=== PATIENT | female | born 1950 | race Caucasian/White ===

== ENCOUNTER 2021-11-08 17:50 | Inpatient (IN) | payer MEDICARE ==
[2021-11-08] MEDS ORDERED: Vancomycin 1 GM/200 ML BAG ONE (18:25)
[2021-11-08] MEDS ORDERED: cefTRIAXone\\ROCEPHIN 2 GM VIAL ONE (18:25)
[2021-11-08 18:40] LABS: #Lymphocytes 0.7 thou/uL (1.20-3.40); #Monocytes 0.2 thou/uL (0.11-0.59); #Neutrophils 9.6 thou/uL (1.40-6.50); %Basophils 0.3 % (0.0-1.0); %Lymphocytes 6.2 % (21.0-51.0); %Monocytes 1.9 % (0.0-10.0); %Neutrophils 91.6 % (42.0-75.0); Hemoglobin 10.6 g/dL (12.0-16.0); Mean Corpuscular HGB CONC 33.1 g/dL (32.0-36.0); Mean Corpuscular Hemoglobin 31.8 pg (27.0-31.0); Mean Corpuscular Volume 96.1 fL (78.0-98.0); Mean Platelet Volume 7.7 fL (7.4-10.4); Platelet Count 280 thou/uL (130-400); RBC Distribution Width 12.4 % (11.5-14.5); Red Blood Cell (RBC) Count 3.35 mill/uL (4.20-5.40); White Blood Cell (WBC) Count 10.5 thou/uL (4.8-10.8)
[2021-11-08] MEDS ORDERED: Ondansetron PF 4 MG/2 ML Vial IVP PRN (18:50)
[2021-11-08] MEDS ORDERED: Acetaminophen 325 MG TAB PO PRN (18:50)
[2021-11-08] MEDS ORDERED: Bisacodyl 10 MG SUPP PR PRN (18:50)
[2021-11-08] MEDS ORDERED: Senokot S 8.6-50 MG TAB PO PRN (18:50)
[2021-11-08] MEDS ORDERED: Bisacodyl 5 MG TAB PO PRN (18:50)
[2021-11-08] MEDS ORDERED: Benzocaine 20% Spray 60 ML CAN PO PRN (19:00)
[2021-11-08 19:08] LABS: ALT (SGPT) 17 U/L (8-55); AST (SGOT) 44 U/L (5-34); Albumin 3.7 g/dL (3.4-4.8); Alkaline Phosphatase 68 U/L (40-110); Anion Gap 16 mmol/L (10-20); BUN (Urea Nitrogen) 16 mg/dL (9.8-20.1); Bilirubin, Total 0.3 mg/dL (0.2-1.2); Calc. Creatinine Clearance 0 mL/min (70-130); Calcium 9.6 mg/dL (7.8-10.44); Carbon Dioxide 22 mmol/L (23-31); Chloride 103 mmol/L (98-107); Estimated GFR 83; Globulin 4.5 g/dL (2.4-3.5); Glucose 132 mg/dL (80-115); Potassium 4.6 mmol/L (3.5-5.1); Protein, Total 8.2 g/dL (5.8-8.1); Sodium 136 mmol/L (136-145)
[2021-11-08 19:39] LABS: Hemoglobin A1c 4.8 % (4.0-6.0)
[2021-11-08 20:31] VITALS: BMI 25.4
[2021-11-08] MEDS: Sodium Chloride 0.9% 1,000 ML IV SCH (20:46)
[2021-11-08] MEDS: Morphine 4 MG/ML VIAL SLOW IVP PRN (20:58)
[2021-11-08] MEDS: FLUoxetine HCl 10 MG CAP PO SCH (20:58)
[2021-11-08] MEDS: sulfaSALAzine 500 MG TAB PO SCH (20:58)
[2021-11-08] MEDS: traZODone HCl 50 MG TAB PO SCH (20:59)
[2021-11-08] MEDS ORDERED: Vancomycin HCl 1 GM in Sodium Chloride 0.9% 250 ML 300 ML IVPB SCH (21:00)
[2021-11-08] MEDS ORDERED: Vancomycin HCl 500 MG in Sodium Chloride 0.9% 100 ML IVPB SCH (21:45)
[2021-11-08] MEDS: metroNIDAZOLE 500 MG in Premix Bag 1 BAG IVPB SCH (21:58)
[2021-11-08] MEDS: HYDROcodone/Acetaminophen 10/325 mg Tablet PO PRN (23:55)
[2021-11-08] MEDS: Cefepime 2 GM in Sodium Chloride 0.9% 100 ML IVPB SCH (23:56)
[2021-11-09] MEDS: Morphine 4 MG/ML VIAL SLOW IVP PRN ×3 (04:54→22:37)
[2021-11-09] MEDS: metroNIDAZOLE 500 MG in Premix Bag 1 BAG IVPB SCH ×3 (05:02→22:36)
[2021-11-09] MEDS: Cefepime 2 GM in Sodium Chloride 0.9% 100 ML IVPB SCH ×3 (06:05→22:31)
[2021-11-09 06:33] LABS: Reticulocyte Count 0.7 % (0.5-1.5)
[2021-11-09 06:38] LABS: #Basophils 0.1 thou/uL (0.0-0.2); #Lymphocytes 0.9 thou/uL (1.20-3.40); #Monocytes 0.6 thou/uL (0.11-0.59); #Neutrophils 8.2 thou/uL (1.40-6.50); %Basophils 0.7 % (0.0-1.0); %Eosinophils 0.4 % (0.0-10.0); %Lymphocytes 8.9 % (21.0-51.0); %Monocytes 6.5 % (0.0-10.0); %Neutrophils 83.5 % (42.0-75.0); Hemoglobin 10.1 g/dL (12.0-16.0); Mean Corpuscular HGB CONC 32.4 g/dL (32.0-36.0); Mean Corpuscular Hemoglobin 31.5 pg (27.0-31.0); Mean Platelet Volume 6.8 fL (7.4-10.4); Platelet Count 275 thou/uL (130-400); RBC Distribution Width 12.4 % (11.5-14.5); Red Blood Cell (RBC) Count 3.21 mill/uL (4.20-5.40); White Blood Cell (WBC) Count 9.8 thou/uL (4.8-10.8)
[2021-11-09 06:59] LABS: CK (CPK) 29 U/L (29-168); Iron Binding Capacity, Total 216 mcg/dL (265-497)
[2021-11-09 07:00] LABS: Iron 33 ug/dL (50-170)
[2021-11-09 07:01] LABS: ALT (SGPT) 12 U/L (8-55); AST (SGOT) 17 U/L (5-34); Albumin 3.7 g/dL (3.4-4.8); Alkaline Phosphatase 65 U/L (40-110); Anion Gap 14 mmol/L (10-20); BUN (Urea Nitrogen) 14 mg/dL (9.8-20.1); Bilirubin, Direct 0.1 mg/dL (0.1-0.3); Bilirubin, Total 0.2 mg/dL (0.2-1.2); CRP (Inflammatory) 20.54 mg/dL (= or < 0.5); Calc. Creatinine Clearance 70 mL/min (70-130); Calcium 9.1 mg/dL (7.8-10.44); Carbon Dioxide 24 mmol/L (23-31); Cardiac Risk 3.3 (Less than 4.5); Chloride 101 mmol/L (98-107); Cholesterol 193 mg/dl (< 200 Desired); Estimated GFR 83; Glucose 110 mg/dL (80-115); HDL Cholesterol 58 mg/dL (>60 Neg Risk); Iron 33 ug/dL (50-170); Iron Binding Capacity, Total 216 mcg/dL (265-497); LDL Cholesterol, Calculated 114 mg/dL; Magnesium 1.8 mg/dL (1.6-2.6); Potassium 3.5 mmol/L (3.5-5.1); Protein, Total 7.3 g/dL (5.8-8.1); Sodium 135 mmol/L (136-145); Triglycerides 105 mg/dL (Less than 150)
[2021-11-09 07:09] LABS: Ferritin 373.85 ng/mL (10-291)
[2021-11-09 07:24] LABS: HBCM Index 0.05 S/CO (0-0.79); HBSAg Index 0.27 S/CO (0-0.99); Hep A IgM AB Non-Reactive (NonReactive); Hep A IgM S/CO 0.16 S/CO (0-0.79); Hep B Surf Ag Non-Reactive S/CO (NonReactive); Hep C IgG Ab Non-Reactive (NonReactive); Hep C Index 0.05 S/CO (0-0.79); Hepatitis B Core IgM Abs Non-Reactive (NonReactive)
[2021-11-09] MEDS: sulfaSALAzine 500 MG TAB PO SCH ×3 (08:02→22:30)
[2021-11-09] MEDS: HYDROcodone/Acetaminophen 10/325 mg Tablet PO PRN ×3 (08:02→18:21)
[2021-11-09] MEDS ORDERED: Enoxaparin Sodium 40 MG/0.4 ML SYRINGE SC SCH (09:00)
[2021-11-09] MEDS: Sodium Chloride 0.9% 1,000 ML IV SCH (16:37)
[2021-11-09] MEDS: traZODone HCl 50 MG TAB PO SCH (22:30)
[2021-11-09] MEDS: FLUoxetine HCl 10 MG CAP PO SCH (22:31)
[2021-11-09] MEDS: VANCOMYCIN 1.25 GM/250 ML BAG 1.25 GM in Premix Bag 1 BAG IVPB SCH (23:00)
[2021-11-10] MEDS: Cefepime 2 GM in Sodium Chloride 0.9% 100 ML IVPB SCH (04:57)
[2021-11-10] MEDS: metroNIDAZOLE 500 MG in Premix Bag 1 BAG IVPB SCH ×3 (05:00→22:12)
[2021-11-10 06:26] LABS: ALT (SGPT) 10 U/L (8-55); AST (SGOT) 26 U/L (5-34); Albumin 3.3 g/dL (3.4-4.8); Alkaline Phosphatase 68 U/L (40-110); Anion Gap 20 mmol/L (10-20); BUN (Urea Nitrogen) 9 mg/dL (9.8-20.1); Bilirubin, Total 0.4 mg/dL (0.2-1.2); Calc. Creatinine Clearance 77 mL/min (70-130); Calcium 8.8 mg/dL (7.8-10.44); Carbon Dioxide 14 mmol/L (23-31); Chloride 99 mmol/L (98-107); Estimated GFR 93; Globulin 3.8 g/dL (2.4-3.5); Glucose 97 mg/dL (80-115); Magnesium 1.6 mg/dL (1.6-2.6); Phosphorus 2.6 mg/dL (2.3-4.7); Potassium 3.5 mmol/L (3.5-5.1); Protein, Total 7.1 g/dL (5.8-8.1); Sodium 129 mmol/L (136-145)
[2021-11-10 06:32] LABS: Hemoglobin 11.3 g/dL (12.0-16.0); Mean Corpuscular HGB CONC 32.2 g/dL (32.0-36.0); Mean Corpuscular Hemoglobin 32.3 pg (27.0-31.0); Mean Platelet Volume 6.8 fL (7.4-10.4); Platelet Count 243 thou/uL (130-400); RBC Distribution Width 12.3 % (11.5-14.5); Red Blood Cell (RBC) Count 3.51 mill/uL (4.20-5.40); White Blood Cell (WBC) Count 11.3 thou/uL (4.8-10.8)
[2021-11-10] MEDS: HYDROcodone/Acetaminophen 10/325 mg Tablet PO PRN ×4 (07:29→22:12)
[2021-11-10] MEDS: sulfaSALAzine 500 MG TAB PO SCH ×3 (07:30→22:12)
[2021-11-10] MEDS: Sodium Chloride 0.9% 1,000 ML IV SCH (07:35)
[2021-11-10] MEDS ORDERED: cefTRIAXone\\ROCEPHIN 1 GM in Sodium Chloride 0.9% 100 ML IVPB SCH (08:00)
[2021-11-10 09:46] LABS: Band 3 % (5-11); Lymphocytes 10 % (21-51); MDiff Complete? YES; Monocytes 2 % (0-10); Neutrophil 85 % (42-75); Platelet Morphology Comment Appears Adequate; Polychromasia SLIGHT = 2-3 cells (100X) (0-2/hpf)
[2021-11-10 13:31] LABS: Anion Gap 16 mmol/L (10-20); BUN (Urea Nitrogen) 9 mg/dL (9.8-20.1); Calc. Creatinine Clearance 71 mL/min (70-130); Calcium 9.2 mg/dL (7.8-10.44); Carbon Dioxide 21 mmol/L (23-31); Chloride 101 mmol/L (98-107); Estimated GFR 84; Glucose 168 mg/dL (80-115); Potassium 3.2 mmol/L (3.5-5.1); Sodium 135 mmol/L (136-145)
[2021-11-10] MEDS: Lactated Ringer's 1,000 ML IV SCH (13:32)
[2021-11-10 13:51] LABS: Actual Bicarbonate (HCO3v) 26 mEq/L (22-28); Base Excess 1.6 mEq/L (-2.0 to +3.0); Calcium, Ionized (venous) 1.12 mmol/L (1.16-1.32); Chloride (VBG) 100 mmol/L (98-106); Hemoglobin (Hb) 10.3 g/dL (11.7-16.1); Sodium 135.8 mmol/L (133-146); pH (venous) 7.43 (7.32-7.43)
[2021-11-10] MEDS: Morphine 4 MG/ML VIAL SLOW IVP PRN (14:52)
[2021-11-10] MEDS ORDERED: Potassium Chloride 20 MEQ TAB PO SCH (16:47)
[2021-11-10 18:24] LABS: Bacteria/HPF None Seen HPF (None Seen); Bilirubin Negative (Negative); Blood, Urine 1+ (Negative); Clarity Clear (Clear); Glucose, Urine (Dipstick) Normal (Negative); Ketone, Urine 20 mg/dL (Negative); Leukocyte 25 Leu/uL (Negative); Nitrite Negative (Negative); Protein, Urine (Dipstick) 10 mg/dL (Neg-Trace); Squamous Epithelial None Seen HPF (0-3); Urobilinogen Normal mg/dL (Less than 2); WBC/HPF 0-3 HPF (0-3); pH, Urine 6.5 (5.0-9.0)
[2021-11-10 18:26] LABS: Urine Culture Reflex Yes Yes
[2021-11-10 19:23] LABS: Vancomycin, Trough 8.1 ug/mL
[2021-11-10] MEDS ORDERED: VANCOMYCIN 1.25 GM/250 ML BAG 1.25 GM in Premix Bag 1 BAG IVPB SCH (21:00)
[2021-11-10] MEDS: FLUoxetine HCl 10 MG CAP PO SCH (22:12)
[2021-11-10] MEDS: traZODone HCl 50 MG TAB PO SCH (22:12)
[2021-11-11] MEDS: VANCOMYCIN 1.25 GM/250 ML BAG 1.25 GM in Premix Bag 1 BAG IVPB SCH (00:09)
[2021-11-11 06:01] LABS: #Eosinphils 0.2 thou/uL (0.0-0.7); #Lymphocytes 1.3 thou/uL (1.20-3.40); #Monocytes 0.9 thou/uL (0.11-0.59); %Basophils 0.3 % (0.0-1.0); %Eosinophils 1.1 % (0.0-10.0); %Lymphocytes 9.1 % (21.0-51.0); %Monocytes 6.3 % (0.0-10.0); %Neutrophils 83.2 % (42.0-75.0); Hemoglobin 10.5 g/dL (12.0-16.0); Mean Corpuscular HGB CONC 33.7 g/dL (32.0-36.0); Mean Corpuscular Hemoglobin 32.1 pg (27.0-31.0); Mean Corpuscular Volume 95.3 fL (78.0-98.0); Mean Platelet Volume 6.8 fL (7.4-10.4); Platelet Count 300 thou/uL (130-400); RBC Distribution Width 12.5 % (11.5-14.5); Red Blood Cell (RBC) Count 3.28 mill/uL (4.20-5.40); White Blood Cell (WBC) Count 14.4 thou/uL (4.8-10.8)
[2021-11-11] MEDS: HYDROcodone/Acetaminophen 10/325 mg Tablet PO PRN ×3 (06:17→21:05)
[2021-11-11 06:21] LABS: ALT (SGPT) 10 U/L (8-55); AST (SGOT) 16 U/L (5-34); Albumin 3.6 g/dL (3.4-4.8); Alkaline Phosphatase 73 U/L (40-110); Anion Gap 14 mmol/L (10-20); BUN (Urea Nitrogen) 6 mg/dL (9.8-20.1); Bilirubin, Total 0.3 mg/dL (0.2-1.2); Calc. Creatinine Clearance 82 mL/min (70-130); Calcium 8.8 mg/dL (7.8-10.44); Carbon Dioxide 25 mmol/L (23-31); Chloride 97 mmol/L (98-107); Estimated GFR 94; Globulin 3.6 g/dL (2.4-3.5); Glucose 107 mg/dL (80-115); Magnesium 2.2 mg/dL (1.6-2.6); Protein, Total 7.2 g/dL (5.8-8.1); Sodium 133 mmol/L (136-145)
[2021-11-11] MEDS: metroNIDAZOLE 500 MG in Premix Bag 1 BAG IVPB SCH ×3 (06:22→22:00)
[2021-11-11 06:25] LABS: Potassium 2.9 mmol/L (3.5-5.1)
[2021-11-11] MEDS ORDERED: Electrolyte Replacement Protocol 1 EACH FS SCH (06:30)
[2021-11-11] MEDS ORDERED: Potassium Chloride 20 MEQ in Premix Bag 1 BAG IVPB SCH (07:30)
[2021-11-11] MEDS ORDERED: Cefepime 2 GM in Sodium Chloride 0.9% 100 ML IVPB SCH (07:45)
[2021-11-11] MEDS: Potassium Chloride 20 MEQ TAB PO SCH ×2 (08:17→11:19)
[2021-11-11] MEDS: sulfaSALAzine 500 MG TAB PO SCH ×3 (08:17→20:58)
[2021-11-11] MEDS: Losartan 25 MG TAB PO SCH (08:18)
[2021-11-11] MEDS: Morphine 4 MG/ML VIAL SLOW IVP PRN (10:40)
[2021-11-11] MEDS: Vancomycin HCl 750 MG in Sodium Chloride 0.9% 250 ML 250 ML IVPB SCH ×2 (11:19→20:57)
[2021-11-11] MEDS: Lactated Ringer's 1,000 ML IV SCH (11:19)
[2021-11-11] MEDS: Cefepime 2 GM in Sodium Chloride 0.9% 100 ML IVPB SCH ×2 (14:24→21:18)
[2021-11-11 14:30] LABS: Potassium 3.4 mmol/L (3.5-5.1)
[2021-11-11] MEDS ORDERED: Potassium Chloride 20 MEQ TAB PO SCH (16:00)
[2021-11-11] MEDS ORDERED: predniSONE 50 MG TAB PO SCH (20:00)
[2021-11-11] MEDS: FLUoxetine HCl 10 MG CAP PO SCH (21:04)
[2021-11-11] MEDS: traZODone HCl 50 MG TAB PO SCH (21:05)
[2021-11-12] MEDS ORDERED: predniSONE 50 MG TAB PO SCH ×2 (02:00→08:00)
[2021-11-12] MEDS: HYDROcodone/Acetaminophen 10/325 mg Tablet PO PRN ×5 (03:55→22:37)
[2021-11-12] MEDS: Lactated Ringer's 1,000 ML IV SCH (03:56)
[2021-11-12] MEDS: Cefepime 2 GM in Sodium Chloride 0.9% 100 ML IVPB SCH ×3 (05:18→22:37)
[2021-11-12] MEDS: metroNIDAZOLE 500 MG in Premix Bag 1 BAG IVPB SCH ×3 (05:33→22:37)
[2021-11-12 06:59] LABS: #Basophils 0.1 thou/uL (0.0-0.2); #Eosinphils 0.2 thou/uL (0.0-0.7); #Lymphocytes 1.1 thou/uL (1.20-3.40); #Monocytes 0.8 thou/uL (0.11-0.59); #Neutrophils 9.9 thou/uL (1.40-6.50); %Basophils 0.6 % (0.0-1.0); %Eosinophils 1.7 % (0.0-10.0); %Lymphocytes 9.3 % (21.0-51.0); %Monocytes 6.5 % (0.0-10.0); Hemoglobin 9.2 g/dL (12.0-16.0); Mean Corpuscular Hemoglobin 31.4 pg (27.0-31.0); Mean Corpuscular Volume 98.1 fL (78.0-98.0); Mean Platelet Volume 4.2 fL (7.4-10.4); Platelet Count 297 thou/uL (130-400); RBC Distribution Width 12.8 % (11.5-14.5); Red Blood Cell (RBC) Count 2.94 mill/uL (4.20-5.40); White Blood Cell (WBC) Count 12.1 thou/uL (4.8-10.8)
[2021-11-12 07:11] LABS: Phosphorus 2.1 mg/dL (2.3-4.7)
[2021-11-12 07:15] LABS: ALT (SGPT) 8 U/L (8-55); AST (SGOT) 17 U/L (5-34); Albumin 3.2 g/dL (3.4-4.8); Alkaline Phosphatase 64 U/L (40-110); Anion Gap 13 mmol/L (10-20); BUN (Urea Nitrogen) 6 mg/dL (9.8-20.1); Bilirubin, Total 0.3 mg/dL (0.2-1.2); Calc. Creatinine Clearance 79 mL/min (70-130); Carbon Dioxide 22 mmol/L (23-31); Chloride 103 mmol/L (98-107); Estimated GFR 94; Globulin 3.1 g/dL (2.4-3.5); Glucose 98 mg/dL (80-115); Potassium 3.9 mmol/L (3.5-5.1); Protein, Total 6.3 g/dL (5.8-8.1); Sodium 134 mmol/L (136-145)
[2021-11-12 07:23] LABS: Vancomycin, Trough 10.8 ug/mL
[2021-11-12] MEDS ORDERED: diphenhydrAMINE 50 MG CAP PO SCH (08:00)
[2021-11-12] MEDS: Losartan 25 MG TAB PO SCH (08:47)
[2021-11-12] MEDS: Vancomycin 1 GM in Premix Bag 1 BAG IVPB SCH ×2 (08:47→20:57)
[2021-11-12] MEDS: sulfaSALAzine 500 MG TAB PO SCH ×3 (08:48→20:59)
[2021-11-12] MEDS ORDERED: Magnesium 2 GM/50 ML(in water) 2 GM in Premix Bag 1 BAG IVPB SCH (13:30)
[2021-11-12] MEDS: ALPRAZolam 0.25 MG TAB PO PRN (17:19)
[2021-11-12] MEDS: Morphine 4 MG/ML VIAL SLOW IVP PRN (18:31)
[2021-11-12] MEDS: FLUoxetine HCl 10 MG CAP PO SCH (20:59)
[2021-11-12] MEDS: traZODone HCl 50 MG TAB PO SCH (20:59)
[2021-11-13] MEDS: Morphine 4 MG/ML VIAL SLOW IVP PRN (02:03)
[2021-11-13] MEDS: HYDROcodone/Acetaminophen 10/325 mg Tablet PO PRN ×4 (02:33→23:08)
[2021-11-13] MEDS: Cefepime 2 GM in Sodium Chloride 0.9% 100 ML IVPB SCH ×3 (06:00→21:01)
[2021-11-13] MEDS: metroNIDAZOLE 500 MG in Premix Bag 1 BAG IVPB SCH ×3 (06:01→21:02)
[2021-11-13] MEDS: Vancomycin 1 GM in Premix Bag 1 BAG IVPB SCH ×2 (09:33→20:55)
[2021-11-13] MEDS: sulfaSALAzine 500 MG TAB PO SCH ×3 (09:34→20:56)
[2021-11-13] MEDS: Losartan 25 MG TAB PO SCH (09:34)
[2021-11-13] MEDS ORDERED: Dexamethasone 10 MG/ML VIAL SLOW IVP SCH (10:15)
[2021-11-13] MEDS: ALPRAZolam 0.25 MG TAB PO PRN (13:12)
[2021-11-13 14:09] LABS: #Basophils 0.1 thou/uL (0.0-0.2); #Eosinphils 0.1 thou/uL (0.0-0.7); #Lymphocytes 0.3 thou/uL (1.20-3.40); #Monocytes 0.1 thou/uL (0.11-0.59); #Neutrophils 10.3 thou/uL (1.40-6.50); %Basophils 1.1 % (0.0-1.0); %Eosinophils 0.7 % (0.0-10.0); %Lymphocytes 2.4 % (21.0-51.0); %Monocytes 1.3 % (0.0-10.0); %Neutrophils 94.6 % (42.0-75.0); Hemoglobin 10.2 g/dL (12.0-16.0); Mean Corpuscular HGB CONC 32.4 g/dL (32.0-36.0); Mean Corpuscular Hemoglobin 31.3 pg (27.0-31.0); Mean Corpuscular Volume 96.6 fL (78.0-98.0); Mean Platelet Volume 6.5 fL (7.4-10.4); Platelet Count 335 thou/uL (130-400); RBC Distribution Width 12.5 % (11.5-14.5); Red Blood Cell (RBC) Count 3.25 mill/uL (4.20-5.40); White Blood Cell (WBC) Count 10.9 thou/uL (4.8-10.8)
[2021-11-13 14:30] LABS: Anion Gap 16 mmol/L (10-20); BUN (Urea Nitrogen) 6 mg/dL (9.8-20.1); Calc. Creatinine Clearance 82 mL/min (70-130); Calcium 9.1 mg/dL (7.8-10.44); Carbon Dioxide 22 mmol/L (23-31); Chloride 101 mmol/L (98-107); Estimated GFR 94; Glucose 187 mg/dL (80-115); Potassium 3.5 mmol/L (3.5-5.1); Sodium 135 mmol/L (136-145)
[2021-11-13] MEDS: Lactated Ringer's 1,000 ML IV SCH (17:32)
[2021-11-13 19:05] LABS: Vancomycin, Trough 16.7 ug/mL
[2021-11-13] MEDS: FLUoxetine HCl 10 MG CAP PO SCH (20:56)
[2021-11-13] MEDS: traZODone HCl 50 MG TAB PO SCH (20:56)
[2021-11-14] MEDS: HYDROcodone/Acetaminophen 10/325 mg Tablet PO PRN ×2 (04:59→08:51)
[2021-11-14] MEDS: metroNIDAZOLE 500 MG in Premix Bag 1 BAG IVPB SCH ×3 (05:00→22:29)
[2021-11-14] MEDS: Cefepime 2 GM in Sodium Chloride 0.9% 100 ML IVPB SCH ×3 (05:01→22:29)
[2021-11-14] MEDS: Lactated Ringer's 1,000 ML IV SCH ×2 (05:01→22:26)
[2021-11-14] MEDS ORDERED: Potassium Chloride 20 MEQ TAB PO SCH ×2 (08:00→08:45)
[2021-11-14] MEDS ORDERED: Magnesium 2 GM/50 ML(in water) 2 GM in Premix Bag 1 BAG IVPB SCH (08:00)
[2021-11-14] MEDS: Amlodipine 5 MG TAB PO SCH (08:38)
[2021-11-14] MEDS: sulfaSALAzine 500 MG TAB PO SCH ×3 (08:39→20:39)
[2021-11-14] MEDS: Losartan 25 MG TAB PO SCH (08:40)
[2021-11-14] MEDS: Vancomycin 1 GM in Premix Bag 1 BAG IVPB SCH ×2 (08:40→20:37)
[2021-11-14] MEDS ORDERED: PHOS-NAK 1 PKT PACK PO SCH (08:45)
[2021-11-14] MEDS ORDERED: Dexamethasone 10 MG/ML VIAL SLOW IVP SCH (09:00)
[2021-11-14] MEDS: ALPRAZolam 0.25 MG TAB PO PRN ×2 (10:26→22:26)
[2021-11-14 13:02] LABS: #Lymphocytes 0.6 thou/uL (1.20-3.40); #Monocytes 0.2 thou/uL (0.11-0.59); #Neutrophils 11.8 thou/uL (1.40-6.50); %Eosinophils 0.2 % (0.0-10.0); %Lymphocytes 4.8 % (21.0-51.0); %Monocytes 1.4 % (0.0-10.0); %Neutrophils 93.6 % (42.0-75.0); Hemoglobin 9.9 g/dL (12.0-16.0); Mean Corpuscular HGB CONC 32.5 g/dL (32.0-36.0); Mean Corpuscular Hemoglobin 31.5 pg (27.0-31.0); Mean Platelet Volume 6.8 fL (7.4-10.4); Platelet Count 402 thou/uL (130-400); RBC Distribution Width 12.5 % (11.5-14.5); Red Blood Cell (RBC) Count 3.15 mill/uL (4.20-5.40); White Blood Cell (WBC) Count 12.6 thou/uL (4.8-10.8)
[2021-11-14 13:25] LABS: Anion Gap 11 mmol/L (10-20); BUN (Urea Nitrogen) 7 mg/dL (9.8-20.1); Calc. Creatinine Clearance 72 mL/min (70-130); Calcium 9.4 mg/dL (7.8-10.44); Carbon Dioxide 26 mmol/L (23-31); Chloride 103 mmol/L (98-107); Estimated GFR 86; Glucose 207 mg/dL (80-115); Magnesium 2.6 mg/dL (1.6-2.6); Potassium 4.1 mmol/L (3.5-5.1); Sodium 136 mmol/L (136-145)
[2021-11-14] MEDS: FLUoxetine HCl 10 MG CAP PO SCH (20:37)
[2021-11-14] MEDS: traZODone HCl 50 MG TAB PO SCH (20:37)
[2021-11-15] MEDS: HYDROcodone/Acetaminophen 10/325 mg Tablet PO PRN ×3 (00:31→10:02)
[2021-11-15] MEDS: metroNIDAZOLE 500 MG in Premix Bag 1 BAG IVPB SCH ×3 (05:52→22:25)
[2021-11-15] MEDS: Cefepime 2 GM in Sodium Chloride 0.9% 100 ML IVPB SCH ×2 (05:53→16:25)
[2021-11-15 06:56] LABS: #Eosinphils 0.1 thou/uL (0.0-0.7); #Lymphocytes 1.8 thou/uL (1.20-3.40); #Monocytes 0.8 thou/uL (0.11-0.59); %Basophils 0.3 % (0.0-1.0); %Eosinophils 0.5 % (0.0-10.0); %Lymphocytes 15.6 % (21.0-51.0); %Monocytes 6.6 % (0.0-10.0); %Neutrophils 76.9 % (42.0-75.0); Hemoglobin 10.5 g/dL (12.0-16.0); Mean Corpuscular HGB CONC 31.8 g/dL (32.0-36.0); Mean Corpuscular Hemoglobin 31.2 pg (27.0-31.0); Mean Corpuscular Volume 98.2 fL (78.0-98.0); Mean Platelet Volume 6.5 fL (7.4-10.4); Platelet Count 462 thou/uL (130-400); RBC Distribution Width 12.6 % (11.5-14.5); Red Blood Cell (RBC) Count 3.36 mill/uL (4.20-5.40); White Blood Cell (WBC) Count 11.7 thou/uL (4.8-10.8)
[2021-11-15 07:15] LABS: Vancomycin, Trough 24.5 ug/mL
[2021-11-15 07:16] LABS: Anion Gap 14 mmol/L (10-20); BUN (Urea Nitrogen) 10 mg/dL (9.8-20.1); Calc. Creatinine Clearance 72 mL/min (70-130); Calcium 9.6 mg/dL (7.8-10.44); Carbon Dioxide 25 mmol/L (23-31); Chloride 107 mmol/L (98-107); Estimated GFR 86; Glucose 102 mg/dL (80-115); Magnesium 2.3 mg/dL (1.6-2.6); Potassium 3.8 mmol/L (3.5-5.1); Sodium 142 mmol/L (136-145)
[2021-11-15] MEDS: Amlodipine 5 MG TAB PO SCH (08:43)
[2021-11-15] MEDS: Vancomycin HCl 750 MG in Sodium Chloride 0.9% 250 ML 250 ML IVPB SCH ×2 (08:43→20:28)
[2021-11-15] MEDS: Losartan 25 MG TAB PO SCH (08:43)
[2021-11-15] MEDS: sulfaSALAzine 500 MG TAB PO SCH ×3 (08:44→20:27)
[2021-11-15] MEDS ORDERED: fentaNYL Citrate/PF 100 MCG/2 ML SYRINGE ONE ×2 (12:01→13:29)
[2021-11-15] MEDS ORDERED: EPINEPHrine 1 MG/ML AMP ONE (12:04)
[2021-11-15] MEDS ORDERED: Lidocaine 1% (PF) 30 ML VIAL ONE (12:04)
[2021-11-15] MEDS ORDERED: Rocuronium Bromide 10 MG/ML (10ML VIAL) ONE (12:48)
[2021-11-15] MEDS ORDERED: NEOSTIGMINE 3 MG/3 ML SYR 3 MG/3 ML SYRINGE ONE (12:48)
[2021-11-15] MEDS ORDERED: Glycopyrrolate 0.2 MG/ML 5 ML SYRINGE ONE (12:48)
[2021-11-15] MEDS ORDERED: Lidocaine 1% MPF 2 ML VIAL ONE (12:48)
[2021-11-15] MEDS ORDERED: Succinylcholine 200 MG/10 ml SYRINGE FS ONE (12:48)
[2021-11-15] MEDS ORDERED: Dexamethasone 20 MG/5 ML VIAL ONE (12:48)
[2021-11-15] MEDS ORDERED: PROPOFOL 200 MG/20 ML VIAL ONE (12:48)
[2021-11-15] MEDS ORDERED: Ondansetron PF 4 MG/2 ML Vial ONE (12:48)
[2021-11-15] MEDS ORDERED: Ondansetron HCl/PF 4 MG/2 ML Vial IVP PRN (13:27)
[2021-11-15] MEDS ORDERED: Promethazine HCl 25 MG/ML VIAL IVPB PRN (13:27)
[2021-11-15] MEDS ORDERED: Promethazine HCl 25 MG/ML VIAL IM PRN ×2 (13:27→14:48)
[2021-11-15] MEDS ORDERED: Fentanyl 100 MCG/2 ML VIAL ONE ×2 (13:45→15:01)
[2021-11-15] MEDS ORDERED: HYDROmorphone 0.5 MG/0.5 ML SYRINGE ONE ×4 (14:08→14:38)
[2021-11-15] MEDS ORDERED: diphenhydrAMINE 50 MG/ML VIAL IM PRN (14:48)
[2021-11-15] MEDS ORDERED: diphenhydrAMINE 50 MG/ML VIAL IVP PRN (14:48)
[2021-11-15] MEDS ORDERED: Ondansetron PF 4 MG/2 ML Vial IVP PRN (14:48)
[2021-11-15] MEDS ORDERED: diphenhydrAMINE 25 MG CAP PO PRN (14:48)
[2021-11-15] MEDS ORDERED: Zolpidem Tartrate 5 MG TAB PO PRN (14:48)
[2021-11-15] MEDS ORDERED: Naloxone HCl 0.4 mg/ml Vial IV PRN (14:48)
[2021-11-15] MEDS ORDERED: fentaNYL Citrate/PF 2,000 MCG in Sodium Chloride 0.9% 60 ML IV PRN (14:48)
[2021-11-15] MEDS ORDERED: Communication Order-Pharmacy FS SCH (15:00)
[2021-11-15] MEDS: traZODone HCl 50 MG TAB PO SCH (20:26)
[2021-11-15] MEDS: FLUoxetine HCl 10 MG CAP PO SCH (20:27)
[2021-11-15] MEDS: Lactated Ringer's 1,000 ML IV SCH (20:28)
[2021-11-16] MEDS: Cefepime 2 GM in Sodium Chloride 0.9% 100 ML IVPB SCH ×4 (00:52→21:31)
[2021-11-16] MEDS: metroNIDAZOLE 500 MG in Premix Bag 1 BAG IVPB SCH ×3 (05:43→21:29)
[2021-11-16 07:14] LABS: #Lymphocytes 0.8 thou/uL (1.20-3.40); #Monocytes 0.6 thou/uL (0.11-0.59); #Neutrophils 13.6 thou/uL (1.40-6.50); %Eosinophils 0.2 % (0.0-10.0); %Lymphocytes 5.3 % (21.0-51.0); %Monocytes 3.9 % (0.0-10.0); %Neutrophils 90.6 % (42.0-75.0); Hemoglobin 9.5 g/dL (12.0-16.0); Mean Corpuscular HGB CONC 32.4 g/dL (32.0-36.0); Mean Corpuscular Volume 98.8 fL (78.0-98.0); Mean Platelet Volume 6.4 fL (7.4-10.4); Platelet Count 436 thou/uL (130-400); RBC Distribution Width 12.6 % (11.5-14.5); Red Blood Cell (RBC) Count 2.98 mill/uL (4.20-5.40)
[2021-11-16 07:33] LABS: Anion Gap 12 mmol/L (10-20); BUN (Urea Nitrogen) 16 mg/dL (9.8-20.1); Calc. Creatinine Clearance 75 mL/min (70-130); Calcium 9.1 mg/dL (7.8-10.44); Carbon Dioxide 25 mmol/L (23-31); Chloride 103 mmol/L (98-107); Estimated GFR 90; Glucose 122 mg/dL (80-115); Potassium 4.1 mmol/L (3.5-5.1); Sodium 136 mmol/L (136-145)
[2021-11-16] MEDS: ALPRAZolam 0.25 MG TAB PO PRN ×2 (09:37→19:52)
[2021-11-16] MEDS: Amlodipine 5 MG TAB PO SCH (10:01)
[2021-11-16] MEDS: Losartan 25 MG TAB PO SCH (10:01)
[2021-11-16] MEDS: sulfaSALAzine 500 MG TAB PO SCH ×3 (10:02→21:30)
[2021-11-16] MEDS: Vancomycin HCl 750 MG in Sodium Chloride 0.9% 250 ML 250 ML IVPB SCH (10:22)
[2021-11-16] MEDS: Lactated Ringer's 1,000 ML IV SCH (19:20)
[2021-11-16 19:55] LABS: Vancomycin, Trough 22.2 ug/mL
[2021-11-16] MEDS: FLUoxetine HCl 10 MG CAP PO SCH (21:30)
[2021-11-16] MEDS: traZODone HCl 50 MG TAB PO SCH (21:30)
[2021-11-16] MEDS ORDERED: VANCOMYCIN 1.25 GM/250 ML BAG 1.25 GM in Premix Bag 1 BAG IVPB SCH (22:00)
[2021-11-17] MEDS: VANCOMYCIN 1.25 GM/250 ML BAG 1.25 GM in Premix Bag 1 BAG IVPB SCH (00:28)
[2021-11-17] MEDS: metroNIDAZOLE 500 MG in Premix Bag 1 BAG IVPB SCH ×3 (05:04→20:39)
[2021-11-17] MEDS: Cefepime 2 GM in Sodium Chloride 0.9% 100 ML IVPB SCH ×3 (05:09→20:39)
[2021-11-17 06:16] LABS: Anion Gap 13 mmol/L (10-20); BUN (Urea Nitrogen) 12 mg/dL (9.8-20.1); Calc. Creatinine Clearance 77 mL/min (70-130); Calcium 8.3 mg/dL (7.8-10.44); Carbon Dioxide 22 mmol/L (23-31); Chloride 103 mmol/L (98-107); Estimated GFR 93; Glucose 94 mg/dL (80-115); Potassium 3.9 mmol/L (3.5-5.1); Sodium 134 mmol/L (136-145)
[2021-11-17] MEDS: Vancomycin HCl 750 MG in Sodium Chloride 0.9% 250 ML 250 ML IVPB SCH (06:55)
[2021-11-17 07:29] LABS: Band 8 % (5-11); Eosinophils 1 % (0-10); Hemoglobin 8.3 g/dL (12.0-16.0); Lymphocytes 10 % (21-51); MDiff Complete? YES; Macrocytosis SLIGHT = 6-15 cells (100X) (0-5/hpf); Mean Corpuscular HGB CONC 34.8 g/dL (32.0-36.0); Mean Corpuscular Hemoglobin 34.7 pg (27.0-31.0); Mean Platelet Volume 7.6 fL (7.4-10.4); Monocytes 3 % (0-10); Neutrophil 77 % (42-75); Platelet Count 384 thou/uL (130-400); Platelet Morphology Comment Appears Adequate; Polychromasia SLIGHT = 2-3 cells (100X) (0-2/hpf); RBC Distribution Width 12.8 % (11.5-14.5); Reactive Lymphocytes 1 % (0-10); Red Blood Cell (RBC) Count 2.37 mill/uL (4.20-5.40); Tear Drops SLIGHT = 2-5 cells (100X) (0-1/hpf); White Blood Cell (WBC) Count 5.5 thou/uL (4.8-10.8)
[2021-11-17] MEDS: Losartan 25 MG TAB PO SCH (08:41)
[2021-11-17] MEDS: Amlodipine 5 MG TAB PO SCH (08:41)
[2021-11-17] MEDS ORDERED: Hydrocodone-Acetamin 15 ML UDCUP PO PRN (08:55)
[2021-11-17] MEDS: sulfaSALAzine 500 MG TAB PO SCH ×3 (10:25→20:38)
[2021-11-17] MEDS: Hydrocodone-Acetamin 15 ML UDCUP PO PRN ×2 (13:24→20:40)
[2021-11-17] MEDS: Lactated Ringer's 1,000 ML IV SCH (13:27)
[2021-11-17] MEDS: FLUoxetine HCl 10 MG CAP PO SCH (20:38)
[2021-11-17] MEDS: ALPRAZolam 0.25 MG TAB PO PRN (20:38)
[2021-11-17] MEDS: traZODone HCl 50 MG TAB PO SCH (20:38)
[2021-11-18] MEDS: VANCOMYCIN 1.25 GM/250 ML BAG 1.25 GM in Premix Bag 1 BAG IVPB SCH (00:33)
[2021-11-18] MEDS: Hydrocodone-Acetamin 15 ML UDCUP PO PRN (04:32)
[2021-11-18] MEDS: metroNIDAZOLE 500 MG in Premix Bag 1 BAG IVPB SCH (04:32)
[2021-11-18] MEDS: Cefepime 2 GM in Sodium Chloride 0.9% 100 ML IVPB SCH (05:45)
[2021-11-18 08:25] VITALS: BP 124/74; TEMP 98.4
[2021-11-18] MEDS: sulfaSALAzine 500 MG TAB PO SCH (08:42)
[2021-11-18] MEDS: Losartan 25 MG TAB PO SCH (08:42)
[2021-11-18] MEDS: Amlodipine 5 MG TAB PO SCH (08:42)
== END 2021-11-18 12:57 | disposition home or self-care (01) | DRG 158 ==
LOC: ERS 17:50 → T4-A 18:59 → OBSVTOIN 11-10 11:52
PROVIDERS: ADMIT Internal Medicine; ATTEND Internal Medicine
PROC: 0J910ZZ Drainage of Face Subcutaneous Tissue and Fascia, Open Approach (ICD-10-PCS; principal; 2021-11-15)
DX: K12.2 Cellulitis and abscess of mouth (principal); L03.211 Cellulitis of face; Z20.822 Contact with and (suspected) exposure to COVID-19; I10 Essential (primary) hypertension; L40.50 Arthropathic psoriasis, unspecified; M06.9 Rheumatoid arthritis, unspecified; R74.01 Elevation of levels of liver transaminase levels; R94.31 Abnormal electrocardiogram [ECG] [EKG]; D63.8 Anemia in other chronic diseases classified elsewhere; E87.6 Hypokalemia; E83.42 Hypomagnesemia; Z88.0 Allergy status to penicillin; Z91.041 Radiographic dye allergy status; Z90.710 Acquired absence of both cervix and uterus; Z90.49 Acquired absence of other specified parts of digestive tract; Z98.890 Other specified postprocedural states; Z79.899 Other long term (current) drug therapy
CPT/HCPCS: 36415; 36416; 70486; 70490; 71045; 80048; 80053; 80061; 80074; 80076; 80202; 81001; 82550; 82728; 82805; 83036; 83540; 83550; 83605; 83735; 84100; 84145; 84443; 85025; 85046; 86140; 86850; 86900; 86901; 87040; 87070; 87081; 87086; 87205; 87324; 87449; 87811; 93005; 93010; 96365; 96366; 96367; 96375; 96376; G0378; J0171; J0692; J0696; J1100; J1170; J1956; J2001; J2270; J2405; J2704; J3010; J3370; J3475; J3490; J7050; J7120; U0003; U0005